=== PATIENT | female | born 1945 | race Caucasian/White ===

== ENCOUNTER 2021-02-12 09:28 | Inpatient (IN) ==
--- NOTE | 2021-02-01 12:05 | PAT Medication Instructions ---
Medication Instructions Date of Service February 01, 2021 Home Medications acetaminophen [Tylenol Arthritis] 650 - 1,300 mg PO Q12H PRN aspirin 81 mg PO QAM carvedilol 25 mg PO BID cholecalciferol (vitamin D3) [Vitamin D3] 25 mcg PO QAM hydralazine 10 mg PO TID hydrochlorothiazide 12.5 mg PO QAM losartan 50 mg PO BID montelukast 10 mg PO QPM nitroglycerin 0.4 mg SUBLINGUAL UD PRN rosuvastatin 5 mg PO QAM Continue as directed nitroglycerin 0.4 mg SUBLINGUAL UD PRN (if needed) ASK your prescriber and surgeon aspirin 81 mg PO QAM DO NOT take the morning of surgery cholecalciferol (vitamin D3) [Vitamin D3] 25 mcg PO QAM hydrochlorothiazide 12.5 mg PO QAM losartan 50 mg PO BID Take morning of surgery With a small sip of water, OTHERWISE NOTHING TO EAT OR DRINK AFTER MIDNIGHT: acetaminophen [Tylenol Arthritis] 650 - 1,300 mg PO Q12H PRN (okay to take up to 4 hours prior to surgery if needed) carvedilol 25 mg PO BID hydralazine 10 mg PO TID rosuvastatin 5 mg PO QAM Take evening before surgery acetaminophen [Tylenol Arthritis] 650 - 1,300 mg PO Q12H PRN (if needed) carvedilol 25 mg PO BID hydralazine 10 mg PO TID losartan 50 mg PO BID montelukast 10 mg PO QPM Other Notes If you have any questions please call us at [phone] or [phone] or [phone] or [phone]
--- NOTE | 2021-02-02 08:45 | Anesthesiology Consultation ---
Date of Service February 02, 2021 Assessment & Plan (1) Encounter for pre-operative examination: - COVID screening: Per assessment on 02/02: Travel screen negative, no known COVID-19 positive contacts or current COVID-19 related symptoms. Patient vaccinated. Surgeon arranging preop COVID testing. Awaiting results. - PCP office visit (12/08/20): "Doing well in general. Not having any complaints at this time.. No chest pain.. no dyspnea on exertion." Continued on same regimen. F/U 4 months. BP check visit done 12/31/20 with adjustments in BP meds. BP 148/88 at subsequent PAT visit 02/02. Chart Review Chart Review: Acceptable Risk for Surgery and Patient seen in Pre Admission Testing Teaching & Discussion Pre-Anesthesia Teaching/Discussion Notes: Instructed NPO after midnight before surgery,except medications with 15 cc of water. Medication instructions provided according to the PAT guidelines. History Surgery Operation Date: 02/12/21 08:50 Proposed Procedures p Right Total Shoulder Arthroplasty Reverse - Malik Zapata DO Height/Weight Height: 5 ft 4 in Weight: 115.8 kg Allergies Allergy/AdvReac Type Severity Reaction Status Date / Time Sulfa (Sulfonamide Allergy Unknown Unknown Verified 02/02/21 09:04 Antibiotics) remote reaction Cjgskel-Ppv-Lvv Reductase AdvReac Intermediate Muscle Pain Verified 01/26/21 07:33 Inhibitor Medications Home Medications Medication Instructions Recorded Confirmed Last Taken acetaminophen [Tylenol Arthritis] 650 - 1,300 mg PO Q12H PRN 01/26/21 01/26/21 Unknown aspirin 81 mg PO QAM 01/26/21 01/26/21 Unknown carvedilol 25 mg PO BID 01/26/21 01/26/21 Unknown cholecalciferol (vitamin D3) 25 mcg PO QAM 01/26/21 01/26/21 Unknown [Vitamin D3] hydralazine 10 mg PO TID 01/26/21 01/26/21 Unknown hydrochlorothiazide 12.5 mg PO QAM 01/26/21 01/26/21 Unknown losartan 50 mg PO BID 01/26/21 01/26/21 Unknown montelukast 10 mg PO QPM 01/26/21 01/26/21 Unknown nitroglycerin 0.4 mg SUBLINGUAL UD PRN 01/26/21 01/26/21 Unknown rosuvastatin 5 mg PO QAM 01/26/21 01/26/21 Unknown Past Medical History Medical History CAD (coronary artery disease) stent x1 (2008) Chronic kidney disease Degenerative disc disease Eczema Hyperlipidemia Hypertension Morbid obesity Osteoarthritis Pinched nerve LBP (LLE weakness) Seasonal allergies Exercise / Class Metabolic Activity III < 4 Walking/Shop/Light housework Past Family History Family History Brother No problems noted. Father Family history of diabetes mellitus Brother Family history of diabetes mellitus Other No family history of adverse response to anesthesia Past Surgical History Surgical History History of colonoscopy History of heart artery stent stent x1 (2008) History of surgery polyp and nodule resection from throat (benign) History of tooth extraction Past Anesthesia History No Hx of Anesthesia Complications and No Family Hx of Anesthesia Complications History of PONV No Hx of PONV and No Hx of Motion Sickness Social History Smoking Status: Never smoker Do You Dip or Chew Tobacco: No Hx Alcohol Use: No substance use type: does not use Review of Systems Rare nighttime wheezes r/t allergies (unchanged) Patient denies chest pain, shortness of breath, fever, chills, cough, palpitations. Physical Exam Vital Signs VITALS BP 148/88 P 71 TEMP 98.3 SP02 96%RA RESP 16 PHYSICAL Full cervical extension range of motion. Full TMJ range of motion. TMD 3.5 finger breaths Mallampati Score 3 (macroglossia) Dentition: full dentures upper/lower Lungs: clear throughout to auscultation Cardiac: regular rate and rhythm, no murmurs noted Spine: normal Carotid arteries: negative bruit Extremities: no edema Lab Results Anesthesia Preop Results Results Anesthesia Widget: WBC 6.64 K/uL (4.8-10.8) 02/02/21 Hgb 12.1 g/dL (12.0-16.0) 02/02/21 Hct 35.8 % (37-47) L 02/02/21 Plt 291 K/uL (130-400) 02/02/21 Na 136 mmol/L (136-145) 02/02/21 K 4.2 mmol/L (3.5-5.1) 02/02/21 Cl 104 mmol/L (98-107) 02/02/21 CO2 27 mmol/L (21-32) 02/02/21 BUN 21 mg/dl (7-18) H 02/02/21 Creat 0.89 mg/dl (0.6-1.2) 02/02/21 Glucose Level 93 mg/dl (70-99) 02/02/21 PT 10.3 Seconds (9.0-12.0) 02/02/21 PTT 26.1 Seconds (21.0-31.0) 02/02/21 INR 1.0 (0.9-1.1) 02/02/21 Blood Type A Positive 02/02/21 Antibody Screen NEGATIVE 02/02/21 Testing Electrocardiogram Date: 02/02/21 Normal sinus rhythm at 62 bpm. LAD. Chest X-Ray Date: 02/02/21 FINDINGS: The heart is mildly enlarged. There is aortic tortuosity/ectasia. There is no failure. There is no focal pulmonary consolidation. There are no pleural effusions.[ IMPRESSION: No active disease in the chest. Echocardiogram Date: 07/28/20 LVEF 65 to 69%. Moderately increased concentric LV wall thickness. Grade 1 diastolic dysfunction. No regional wall motion abnormalities. Mild to moderate MR. Mild pulmonary hypertension. Mild TR.
--- NOTE | 2021-02-11 07:08 | History & Physical Report ---
Date of Service February 11, 2021 Assessment & Plan (1) Rotator cuff arthropathy of right shoulder: We will proceed with a right reverse shoulder arthroplasty. Postoperatively she will be placed in a sling and kept overnight in the hospital for postoperative medical management. She plans to go to outpatient physical therapy at [facility] [place] History of Present Illness Chief Complaint: Osteoarthritis of the right shoulder. Primary Care Provider: Unknown Unknown Deepa is a pleasant 75-year-old female has been doing with chronic increasing right shoulder pain and weakness. She has been seeing a sports medicine primary care physician. She has had multiple injections with her shoulder and has done physical therapy. MRI shows severe osteoarthritis with some high-grade partial- thickness tearing throughout her rotator cuff. After failing conservative treatment, she has elected to proceed with a right reverse shoulder replacemen t.. Allergies Allergy/AdvReac Type Severity Reaction Status Date / Time Sulfa (Sulfonamide Allergy Unknown Unknown Verified 02/02/21 09:04 Antibiotics) remote reaction Lqvgtfc-Krv-Rkd Reductase AdvReac Intermediate Muscle Pain Verified 01/26/21 07:33 Inhibitor Home Medications Medication Instructions Recorded Confirmed Type acetaminophen [Tylenol Arthritis] 650 - 1,300 mg PO Q12H PRN 01/26/21 01/26/21 History aspirin 81 mg PO QAM 01/26/21 01/26/21 History carvedilol 25 mg PO BID 01/26/21 01/26/21 History cholecalciferol (vitamin D3) 25 mcg PO QAM 01/26/21 01/26/21 History [Vitamin D3] hydralazine 10 mg PO TID 01/26/21 01/26/21 History hydrochlorothiazide 12.5 mg PO QAM 01/26/21 01/26/21 History losartan 50 mg PO BID 01/26/21 01/26/21 History montelukast 10 mg PO QPM 01/26/21 01/26/21 History nitroglycerin 0.4 mg SUBLINGUAL UD PRN 01/26/21 01/26/21 History rosuvastatin 5 mg PO QAM 01/26/21 01/26/21 History Past Med/Surg History Medical History CAD (coronary artery disease) stent x1 (2008) Chronic kidney disease Degenerative disc disease Eczema Hyperlipidemia Hypertension Morbid obesity Osteoarthritis Pinched nerve LBP (LLE weakness) Seasonal allergies Surgical History History of colonoscopy History of heart artery stent stent x1 (2009) History of surgery polyp and nodule resection from throat (benign) History of tooth extraction Family History Brother No problems noted. Father Family history of diabetes mellitus Brother Family history of diabetes mellitus Other No family history of adverse response to anesthesia Social History Smoking Status: Never smoker Second Hand Exposure: Yes (IN THE PAST); Hx Alcohol Use: No Preferred Language: Hungarian Price Economist Required: No Beliefs That Will Affect Care: None Current Living Situation: Alone Feels Safe at Home: Yes Assistive Devices: Cane, Denture - Upper, Denture - Lower and Glasses Review of Systems All systems reviewed & are unremarkable except as noted in HPI & below. Physical Exam On physical examination of the right shoulder, she has about 90 degrees of forward elevation 60 degrees of abduction and 20 degrees of external rotation. She has 4-5 motor strength with full can testing. She has pain and crepitus throughout.. Constitutional WD/WN, vitals as above Eyes PERRL, conjunctivae normal, anicteric sclerae ENMT external ear and nose normal, oropharynx normal Neck trachea midline, no thyromegaly Respiratory normal respiratory effort Cardiovascular RRR, no murmur, no edema Gastrointestinal (Abdomen) normal bowel sounds, soft, nontender, no hepatosplenomegaly Psychiatric A+Ox3, euthymic affect Results & Data Results & Data Laboratory Results . Diagnostic Findings X-rays of the right shoulder show advanced osteoarthritis with joint space narrowing, osteophyte formation, and djiv-gz-vuhh articulation. MRI of the right shoulder shows advanced osteoarthritis with high-grade partial- thickness cuff tearing throughout the rotator cuff.. PG Care Time/CCT Total # of Minutes Spent Total Time Spent with Patient: Total time spent is greater than 50% in coordination of care (as documented) at patient's floor/unit and/or counseling patient: Coding Level of Care Code None Diagnoses Rotator cuff arthropathy of right shoulder M12.811
[~2021-02-12 09:28] MED LIST: ACETAMINOPHEN 500 MG TAB PO SCH; BUPIVACAINE 0.5 % 5 MG/1 ML PF 10ML VIAL ONE; FAMOTIDINE 20 MG TAB PO SCH; GABAPENTIN 300 MG CAP PO SCH; LR 15ML/HR IV SCH; LR 60ML/HR IV SCH; TRANEXAMIC ACID 1,000 MG **IV Intra-op IV SCH; TRANEXAMIC ACID 1,000 MG **IV Pre-op IV SCH; ceFAZolin 2000MG 2,000 MG/15 ML SYR IV SCH; dexAMETHasone 4 MG TAB PO SCH
--- NOTE | 2021-02-12 10:36 | History & Physical Bridge Note ---
Date of Service February 12, 2021 History & Physical Bridge Note I have examined the patient, reviewed the History & Physical and in the interval since the performance of the History & Physical I have noted the following changes of clinical significance: no changes noted
[2021-02-12] MEDS ORDERED: ROCURONIUM BROMIDE 10 MG/ML 5 ML VIAL IV ONE (10:57)
[2021-02-12] MEDS ORDERED: SUCCINYLCHOLINE 100MG/5ML SYR IV ONE (10:57)
[2021-02-12] MEDS ORDERED: ONDANSETRON INJ 2 MG/ML 2 ML VIAL ONE (10:57)
[2021-02-12] MEDS ORDERED: PROPOFOL IV EMULSION 10 MG/ML 20 ML VIAL IV ONE (10:57)
[2021-02-12] MEDS ORDERED: fentaNYL citrate 100 MCG/2 ML VIAL ONE (10:57)
[2021-02-12] MEDS ORDERED: MIDAZOLAM HCL 1 MG/ML 2ML VIAL ONE (10:57)
[2021-02-12] MEDS ORDERED: DEXAMETHASONE SOD INJ 4 MG/ML VIAL ONE (10:57)
[2021-02-12] MEDS ORDERED: ATROPINE SULFATE 0.1 MG/ML 10ML SYR IV PRN (11:20)
[2021-02-12] MEDS ORDERED: fentaNYL citrate 100 MCG/2 ML VIAL IV PRN (11:20)
[2021-02-12] MEDS ORDERED: ePHEDrine sulfate 50 MG/ML AMP IV PRN (11:20)
[2021-02-12] MEDS ORDERED: ONDANSETRON INJ 2 MG/ML 2 ML VIAL IV PRN ×2 (11:20→16:43)
[2021-02-12] MEDS ORDERED: ORTHO JOINT ANESTHETIC ONE (12:26)
[2021-02-12] MEDS ORDERED: ROPIVACAINE 0.5% HCL/PF 150 MG, BUPIVACAINE 0.75% MPF 20 ML, EPINEPHrine 30MG/30ML (OR ... INSTIL SCH (12:45)
[2021-02-12] MEDS ORDERED: ePHEDrine sulfate 50 MG/ML AMP ONE (13:05)
[2021-02-12] MEDS ORDERED: PHENYLEPHRINE 100MCG/ML 5ML SYR ONE (13:05)
--- NOTE | 2021-02-12 14:13 | Operative Report ---
PG Post Operative Report Pre & Post Diagnosis Operation Date: 02/12/21 11:35 Pre-Op Diagnosis: Right Shoulder Degenerative Joint Disease with tendinopathy long head of the biceps tendon Post-Op Diagnosis: Right Shoulder Degenerative Joint Disease with tendinopathy of the long head of the biceps tendon I identified the patient and participated in the time-out.: Yes Procedure Operation Date: 02/12/21 11:35 Actual Procedures p Right Reverse Total Shoulder Arthroplasty(Right) with open biceps tenodesis as a distinct and separate procedure (modifier 59)- Malik Zapata DO Surgeon Malik Zapata DO Machine Operator Assistant Malik Chun PAC Estimated Blood Loss 200 Findings Consistent with Post-Op Diagnosis Specimens Right humeral head Complications none Disposition Disposition: Recovery Room Indications Sangeeta is a pleasant 75-year-old female who is been there with chronic worsening right shoulder pain. X-rays have been diagnostic for advanced arthritis of the shoulder with high-grade partial-thickness cuff tearing. After failing conservative treatment, she elected proceed with a right reverse shoulder arthroplasty. Description of Procedure A CPT code modifier 59: The long head of the biceps tendon was enlarged and inflamed consistent with tendinopathy. A tenodesis was opted. This was a separate and distinct portion of the procedure. For these reasons, a CPT code modifier 59 will be added to this case. Implants used: I used a [employer]omet Comprehensive reverse total shoulder arthroplasty system with a size 10 press fit micro humeral stem, a 25 mm small augment humeral tray and a +3 humeral bearing, a standard baseplate with a 6.5 mm central screw and superior and inferior locking screws, and a size 36 mm eccentric glenosphere. Sangeeta arrived at [facility] for the above procedure. He was seen in the preoperative holding area and the operative extremity was identified and signed. He was given a preoperative antibiotic, TXA, and an interscalene nerve block. He was taken back to the operating room, laid on table in supine position, and put under general anesthesia. He was then put into the beachchair position. The shoulder was then prepped and draped in sterile fashion. A timeout was done and the patient and the operative extremity was properly identified. A deltopectoral approach was used. Dissection was taken down through the fascia and the deltoid was retracted laterally and the conjoined tendon was retracted medially. The anterior shoulder was exposed. The biceps groove was opened up and the biceps tendon was examined extensively. The biceps tendon demonstrated enlargement and inflammatory changes consistent with longstanding inflammation in the context of osteoarthritis and cuff arthropathy. The long head of the biceps tendon was then tenodesed to the upper border of the pectoralis major. This was a separate and distinct portion of the procedure. The subscapularis was then directly released off the lesser tuberosity with a peel technique. The inferior capsule was released and the humeral head was dislocated. A canal finding reamer was sent down the center of the humeral canal. Sequential reaming up to a size 10 reamer was done. Off that reamer, a proximal humeral resection guide was placed. The proximal humerus was resected at 135 of inclination and 25 of retroversion. Osteophytes were then removed and the glenoid was exposed. Time was spent doing a complete capsular and labral release. The glenoid guide was then placed in the inferior aspect of the glenoid. A 3.2 mm Steinmann pin was then placed into the glenoid vault at 10 of inclination. The glenoid baseplate was then reamed. The final size 25 mm small augment baseplate was then impacted in the place. A 6.5 mm central screw was then placed followed by superior and inferior locking screws. A 36 eccentric glenosphere was then impacted into place. Surrounding soft tissues were then injected with 100 cc an orthopedic pain control cocktail. The proximal humerus was then exposed. Sequential broaching of the humerus up to a size 10 broach was done. Off that broach a +3 offset humeral tray was trialed. The shoulder was then reduced, brought through a full range of motion, and felt to be stable. The shoulder was then dislocated and the broach was removed. The final size 10 micro press-fit humeral stem was then impacted into place. A standard humeral bearing was then snapped onto a +3 offset humeral tray. The humeral tray was then impacted onto the humeral stem. The shoulder was once again reduced, brou ght through a full range of motion, and felt to be stable. The subscapularis was then tenodesed back to the lesser tuberosity with transosseous FiberWire sutures and side to side sutures with the arm in 45 of external rotation. A dilute betadyne lavage was then done for 3 minutes. The joint was then irrigated with normal saline solution. Hemostasis was obtained. The interval was closed with 2-0 Vicryl suture. The skin was then closed with 2-0 Vicryl and jorge. A Silverlon dressing was placed and the arm was rested in a regular arm sling. He was then extubated and transferred to a hospital bed. He taken to the postanesthesia care unit in stable condition. He tolerated the procedure well. Malik Chun PA-C, was present for the entire procedure. He was critical for patient positioning, prepping, draping, retraction exposure, wound closure and application of sterile dressing. I attest to the content of the Intraoperative Record and any orders documented t herein. Any exceptions are noted below.
--- NOTE | 2021-02-12 14:58 | Anesthesiology Progress Note ---
Date of Service February 12, 2021 Anesthesia Post Procedure Vital Signs Vital Signs: Temp Pulse Pulse Resp BP Pulse Ox 02/12/21 14:55 75 16 133/70 97 02/12/21 14:45 84 16 136/77 98 02/12/21 14:38 36.1 C L 82 16 136/74 94 02/12/21 09:49 36.7 C 84 18 160/94 H 94 Transfer of Care Handoff Completed per policy Notes Mental Status: alert / awake / arousable and participated in evaluation Patient Amnestic to Procedure: Yes Nausea / Vomiting: adequately controlled Pain: adequately controlled Airway Patency, RR, SpO2: stable & adequate BP & HR: stable & adequate Hydration State: stable & adequate Anesthetic Complications: no major complications apparent and Pt Satisfied with anesthetic care
--- NOTE | 2021-02-12 15:05 | XRay Report ---
XR shoulder RT min 2V routine CLINICAL HISTORY: Post shoulder surgery COMPARISON: 01/06/2021 DISCUSSION: There are postsurgical changes of a reverse total right shoulder arthroplasty there is no dislocation. There is gas within the soft tissues consistent with recent surgery. There are overlyin g skin jorge. There is a suspected small right pleural effusion with right basilar atelectasis. IMPRESSION: 1. Postsurgical changes of a reverse total right shoulder arthroplasty. No evidence of dislocation. 2. Suspected small right pleural effusion with associated right basilar atelectasis ACT 112: Negative or not required by law. Electronically signed by: Charli Knight M.D. 02/12/2021 3:04 PM
[2021-02-12] MEDS ORDERED: NALOXONE HCL 0.4 MG/1 ML VIAL/CARP IV PRN (16:43)
[2021-02-12] MEDS ORDERED: MAGNESIUM HYDROXIDE SUSP 30 ML UDC PO PRN (16:43)
[2021-02-12] MEDS ORDERED: HYDROmorphone INJ 0.5 MG/0.5 ML SYR IV PRN (16:43)
[2021-02-12] MEDS ORDERED: oxyCODONE HCL IR 5 MG TAB (IMMEDIATE RELEASE) PO PRN (16:43)
[2021-02-12] MEDS ORDERED: SODIUM CHLORIDE 0.9% 1000ML 1,000 ML IV SCH (16:43)
[2021-02-12] MEDS ORDERED: METOCLOPRAMIDE HCL INJ 5 MG/ML 2 ML VIAL IV PRN (16:43)
[2021-02-12] MEDS ORDERED: NITROGLYCERIN SL 0.4 MG/TAB TAB SL PRN (16:43)
[2021-02-12] MEDS ORDERED: bisacodyL 10 MG SUPP PR PRN (16:43)
[2021-02-12] MEDS: KETOROLAC TROMETHAMINE 15 MG/ML VIAL IV SCH ×2 (17:30→23:25)
[2021-02-12] MEDS: DOCUSATE SODIUM 100 MG CAP PO SCH (20:18)
[2021-02-12] MEDS: LOSARTAN POTASSIUM 50 MG TAB PO SCH (20:18)
[2021-02-12] MEDS: ceFAZolin 2000MG 2,000 MG/15 ML SYR IV SCH (20:18)
[2021-02-12] MEDS: carvediloL 25 MG TAB PO SCH (20:19)
[2021-02-12] MEDS: hydrALAZINE 10 MG TAB PO SCH (20:19)
[2021-02-12] MEDS ORDERED: MONTELUKAST SODIUM 10 MG TABLET PO SCH (21:00)
[2021-02-12] MEDS ORDERED: SENNA 8.6 MG TAB PO SCH (21:00)
[2021-02-12] MEDS: ACETAMINOPHEN 500 MG TAB PO SCH (21:30)
[2021-02-13] MEDS: ACETAMINOPHEN 500 MG TAB PO SCH (05:06)
[2021-02-13] MEDS: KETOROLAC TROMETHAMINE 15 MG/ML VIAL IV SCH (05:07)
[2021-02-13] MEDS: ceFAZolin 2000MG 2,000 MG/15 ML SYR IV SCH (05:07)
--- NOTE | 2021-02-13 07:46 | Orthopedic Progress Note ---
Date of Service February 13, 2021 Assessment & Plan (1) Status post reverse total replacement of right shoulder: Overall she is doing very well. She is not having much pain in the right shoulder. She can be seen by physical therapy today for ambulation and range of motion exercises. She can be discharged home later today. She will follow-up with orthopedics in 2 weeks. Herson Qureshi was seen and examined at bedside this morning. Overall she is doing very well. She is not having any pain in the right shoulder. She was able to get some sleep last night. She has no complaints.. Review of Systems All systems reviewed & are unremarkable except as noted in HPI & below. Physical Exam On physical examination of the right shoulder, the dressing is clean and dry. She is wearing her sling as instructed. The nerve block is still in effect. Results & Data Results & Data Laboratory Results . Diagnostic Findings Show the prosthesis to be in anatomic alignment without any evidence of fracture, dislocation, or loosening. PG Care Time/CCT Total # of Minutes Spent Total Time Spent with Patient: Total time spent is greater than 50% in coordination of care (as documented) at patient's floor/unit and/or counseling patient: Coding Level of Care Code 79967 Post Operative Follow-Up Diagnoses Status post reverse total replacement of right shoulder Z96.611
--- NOTE | 2021-02-13 07:47 | Discharge Summary ---
Date of Service February 13, 2021 Admission HPI (Per Admitting) Deepa is a pleasant 75-year-old female has been doing with chronic increasing right shoulder pain and weakness. She has been seeing a sports medicine primary care physician. She has had multiple injections with her shoulder and has done physical therapy. MRI shows severe osteoarthritis with some high-grade partial- thickness tearing throughout her rotator cuff. After failing conservative treatment, she has elected to proceed with a right reverse shoulder replacement.. Admission Exam (Per Admitting) On physical examination of the right shoulder, she has about 90 degrees of forward elevation 60 degrees of abduction and 20 degrees of external rotation. She has 4-5 motor strength with full can testing. She has pain and crepitus throughout.. Principal Diagnosis Same as "Discharge Diagnosis" noted below under Discharge Instructions. Discharge Exam On physical examination of the right shoulder, the dressing is clean and dry. She is wearing her sling as instructed. The nerve block is still in effect. Discharge Data Procedures Performed Operation Date: 02/12/21 11:35 Actual Procedures p Right Reverse Total Shoulder Arthroplasty(Right) - Malik Zapata DO Ordered Studies 02/12/21 05:00 US - OR guided needle placemen Routine Hospital Course (1) Status post reverse total replacement of right shoulder: On February 12, 2021 Kiera arrived at [facility] and underwent a right reverse shoulder replacement without complication. She had a general anesthetic and a right interscalene nerve block. Postoperatively she was placed in a sling and transferred to the general orthopedic floors. Her hospital course was uneventful. On postop day #1 her vital signs are stable and her pain was well controlled. She was able to participate well with physical therapy doing ambulation and range of motion exercises. She was then discharged home. She will follow-up with orthopedics in 2 weeks. PG Care Time/CCT Total # of Minutes Spent Total Time Spent with Patient: Total time spent is greater than 50% in coordination of care (as documented) at patient's floor/unit and/or counseling patient: Discharge Plan Discharge Items Patient Disposition: Home - Home Health Services Reason For Visit: Right Shoulder Degenerative Joint Disease Discharge Diagnosis: Right reverse shoulder replacement Activity: As commented below Non-emergency contact: Surgeon Call non-emergency contact if: your wound has increased redness and your wound has increased drainage Follow-up/Referrals: Harlan Winkler PA-C [Primary Care Provider] - Diet: Regular Addtl Attending Provider Instructions: Activity and Therapy Recommendations: * If you are using [facility] then therapy will be provided at your home until they feel you have accomplished all of your goals. * If you are using [facility] then Physical Therapy will be provided until they feel you are ready to start Outpatient Physical Therapy. * If you are not using home therapy then Outpatient Physical Therapy should start about 3-5 days from your day of surgery. Therapy will last about 8-12 weeks * Wear your sling for 3 weeks, unless otherwise instructed. You may remove your sling to shower and to dress, but otherwise, you should be in your sling at all times, including while sleeping * The shoulder replacement is very stable and you can use your hand while in the sling * You were shown a series of exercises in the hospital. Do these exercises daily including the exercises you were shown in physical therapy. Medications: * Narcotic You will likely be sent home from the hospital with a prescription for the narcotic pain medication that worked best throughout your stay. * Other medications may be prescribed for specific circumstances. If you have any questions, please call the office at . * Resume previous home medications unless otherwise instructed Dressing Care: Leave the Silverlon dressing in place for 7 days. After 7 days you may remove the dressing. If the incision is not draining then you may leave the jorge open to air. If there is a little bit of drainage or if the jorge are getting stuck on your clothing then cover the incision with a dry dressing. The jorge will be removed at your 2 week follow-up appointment. Showering: You may shower with the Silverlon dressing in place. Do not let the shower spray hit the dressing directly. Pat the Silverlon dressing dry. If the dressing becomes wet underneath, then simply remove the dressing. Keep the incision dry until you are 7 days out from the day of surgery. After 7 days you may remove the Silverlon dressing and shower with the jorge exposed. Let soapy water run over the jorge and pat them dry. Do not scrub or soak the incision. Things To Watch For: * Drainage from the incision site that occurs more than one week after your surgery. * Increased redness at the incision site. * Fever above 102 degrees Fahrenheit. * Unusual chest pain or shortness of breath. * Call [facility] at with any of the above problems Follow-Up Visit: Follow-up with Dr. Zapata's PA (Malik Chun) 2-3 weeks after your day of surgery. He will remove your jorge and answer any questions. If you have any additional questions or concerns, Dr Zapata is usually in the office at the same time and will be available An appointment was probably scheduled when you signed-up for surgery in the office. If you have any questions call More detailed instructions as well as Frequently Asked Questions were provided in a folder by our office when you signed-up for surgery. Please review these instructions when you get home. If you have any further questions or concerns, please feel free to call the office at [phone] Pending Studies at Discharge: No Stand-Alone Forms: My [facility], Smoking Cessation Medications and DC Order Prescriptions: New oxycodone 5 mg Tablet 5 mg PO Q4H PRN (Reason: pain) Qty: 30 RF: 0 Continued losartan 50 mg Tablet 50 mg PO BID RF: 0 hydralazine 10 mg Tablet 10 mg PO TID RF: 0 carvedilol 25 mg Tablet 25 mg PO BID RF: 0 acetaminophen [Tylenol Arthritis] 650 mg Tablet Extended Release 650 - 1,300 mg PO Q12H PRN (Reason: Pain) RF: 0 montelukast 10 mg Tablet 10 mg PO QPM RF: 0 aspirin 81 mg Tablet 81 mg PO QAM RF: 0 cholecalciferol (vitamin D3) [Vitamin D3] 25 mcg (1,000 unit) Capsule 25 mcg PO QAM RF: 0 rosuvastatin 5 mg Tablet 5 mg PO QAM RF: 0 hydrochlorothiazide 12.5 mg Tablet 12.5 mg PO QAM RF: 0 nitroglycerin 0.4 mg Tablet, Sublingual 0.4 mg sublingual UD PRN (Reason: Chest Pain) RF: 0 Discharge Orders: Discharge Order (Routine); Ordered 02/13/21 Ordered By: Malik Zapata Admission Data Admit Date/Time: 02/12/21 14:36 Attending Provider: Malik Zapata Admit Provider: Malik Zapata Primary Care Provider: Harlan Winkler
[2021-02-13] MEDS: carvediloL 25 MG TAB PO SCH (07:53)
[2021-02-13] MEDS: DOCUSATE SODIUM 100 MG CAP PO SCH (07:54)
[2021-02-13] MEDS: LOSARTAN POTASSIUM 50 MG TAB PO SCH (07:54)
[2021-02-13] MEDS: hydrALAZINE 10 MG TAB PO SCH ×2 (07:58→08:04)
[2021-02-13] MEDS ORDERED: dexAMETHasone 4 MG TAB PO SCH (08:00)
[2021-02-13] MEDS ORDERED: hydroCHLOROthiazide 25 MG TAB PO SCH (09:00)
[2021-02-13] MEDS ORDERED: ASPIRIN 81 MG ECTAB PO SCH (09:00)
[2021-02-13] MEDS ORDERED: ROSUVASTATIN CALCIUM 5 MG TAB PO SCH (09:00)
[2021-02-13] MEDS ORDERED: MULTIVITAMIN TAB PO SCH (09:00)
== END 2021-02-13 12:40 | disposition home health service (06) | DRG 483 ==
LOC: ASU 09:28 → 3E 14:36

== ENCOUNTER 2024-07-26 07:11 | Observation (INO) ==
--- NOTE | 2024-06-19 14:26 | PAT Medication Instructions ---
Medication Instructions Date of Service June 19, 2024 Home Medications acetaminophen 650 mg tablet,extended release 650 - 1,300 mg PO Q12H PRN Pain aspirin 81 mg tablet 81 mg PO QAM losartan 50 mg tablet 50 mg PO QAM nitroglycerin 0.4 mg sublingual tablet 0.4 mg sublingual UD PRN Chest Pain apixaban 5 mg tablet (Eliquis) 5 mg PO BID metoprolol succinate 100 mg tablet,extended release 24 hr 100 mg PO QAM famotidine 20 mg tablet 20 mg PO QAM meclizine 25 mg tablet 25 mg PO TID PRN prn Continue as directed nitroglycerin 0.4 mg sublingual tablet 0.4 mg sublingual UD PRN Chest Pain (if needed) ASK your prescriber and surgeon aspirin 81 mg tablet 81 mg PO QAM apixaban 5 mg tablet (Eliquis) 5 mg PO BID DO NOT take the morning of surgery losartan 50 mg tablet 50 mg PO QAM Take morning of surgery With a small sip of water, OTHERWISE NOTHING TO EAT OR DRINK AFTER MIDNIGHT: acetaminophen 650 mg tablet,extended release 650 - 1,300 mg PO Q12H PRN Pain (if needed) metoprolol succinate 100 mg tablet,extended release 24 hr 100 mg PO QAM famotidine 20 mg tablet 20 mg PO QAM meclizine 25 mg tablet 25 mg PO TID PRN prn (if needed) Take evening before surgery acetaminophen 650 mg tablet,extended release 650 - 1,300 mg PO Q12H PRN Pain (if needed) meclizine 25 mg tablet 25 mg PO TID PRN prn (if needed) Other Notes If you have any questions please call us at [phone] or [phone] or [phone] or [phone]
--- NOTE | 2024-06-25 10:28 | Anesthesiology Consultation ---
Date of Service June 25, 2024 Assessment & Plan (1) Encounter for pre-operative examination: - Infectious disease screening: Per assessment on 06/25- No known recent infectious disease contacts or current infectious disease symptoms. - Outpatient joint assessment: Pt currently scheduled for inpatient pathway. If surgeon requests review for outpatient joint pathway, patient is not recommended candidate for outpatient joint program from anesthesia standpoint based on available information. - ASA/Eliquis instructions per surgeon/prescriber - S/P Right reverse TSA (02/12/21): Grade 2 view, MAC#3, ETT 7.5 + regional at [facility] - Cardiology visit (04/18/24): "Paroxysmal atrial fibrillation.. s/p discharge from hospital 5 days ago for new onset afib.. patient is not in afib today.. discussed with patient rationale for use of metoprolol and the rationale for eliquis over aspirin in the prevention of stroke.. We will not make any changes to her medications today. We will give her a little more time to adjust to the changes that were made at the time of her hospitalization. Patient has been given my business card to contact me with any concerns or change in condition.. patient has no interest in being evaluated for sleep apnea, reasoning she is claustrophobic.. Hematuria.. Culture, urine.. urinanalysis.. continue the same medications for now and continue to monitor blood pressures at home.. Coronary artery disease involving [place] coronary artery of [place] heart without angina pectoris.. Dyslipidemia, goal LDL below 70.. Presence of coronary angioplasty implant and graft- Stable.. Continue aspirin and refer to [facility] for lipid management given history of statin intolerance. See if we can get her on a pcsk9 inhibitor." 6 month F/U recommended. Subsequently treated for UTI > "resolved" per patient. Chart Review Chart Review: Acceptable Risk for Surgery and Patient seen in Pre Admission Testing Teaching & Discussion Pre-Anesthesia Teaching/Discussion Notes: Instructed NPO after midnight before surgery,except medications with 15 cc of water. Medication instructions provided according to the PAT guidelines. History Surgery Operation Date: 07/26/24 12:00 Proposed Procedures p Left Reverse Total Shoulder Arthroplasty - Malik Zapata, Height/Weight Height: 5 ft 5 in Weight: 109.3 kg Allergies Allergy/AdvReac Type Severity Reaction Status Date / Time Sulfa (Sulfonamide Allergy Unknown Unknown Verified 06/19/24 13:18 Antibiotics) remote reaction Aevupvz-OCQ-UrQ Reductase AdvReac Intermediate Muscle Pain Verified 06/19/24 13:18 Inhibitor [Obzjiet-Nvg-Akg Reductase Inhibitor] Medications Home Medications Medication Instructions Recorded Confirmed Last Taken acetaminophen 650 mg 650 - 1,300 mg PO Q12H PRN Pain 01/26/21 06/19/24 02/11/21 08:00 tablet,extended release aspirin 81 mg tablet 81 mg PO QAM 01/26/21 06/19/24 02/12/21 07:00 losartan 50 mg tablet 50 mg PO QAM 01/26/21 06/19/24 02/12/21 07:00 nitroglycerin 0.4 mg sublingual 0.4 mg sublingual UD PRN Chest Pain 01/26/21 06/19/24 Unknown tablet apixaban 5 mg tablet (Eliquis) 5 mg PO BID 04/24/24 06/19/24 Unknown metoprolol succinate 100 mg 100 mg PO QAM 04/24/24 06/19/24 Unknown tablet,extended release 24 hr famotidine 20 mg tablet 20 mg PO QAM 06/19/24 06/19/24 Unknown meclizine 25 mg tablet 25 mg PO TID PRN prn 06/19/24 06/19/24 Unknown Past Medical History Medical History Atrial fibrillation CAD (coronary artery disease) stent x1 (2008) Follows with [facility] cardio Chronic kidney disease Follows with [facility] nephrology Degenerative disc disease Hyperlipidemia Hypertension Morbid obesity Osteoarthritis Sciatic leg pain Right Seasonal allergies Exercise / Class Metabolic Activity III < 4 Walking/Shop/Light housework (uses cane ) Past Family History Family History Brother No problems noted. Father Family history of diabetes mellitus Brother Family history of diabetes mellitus Other No family history of adverse response to anesthesia Past Surgical History Surgical History History of cataract extraction R/L History of cholecystectomy History of colonoscopy History of esophagogastroduodenoscopy (EGD) History of heart artery stent stent x1 (2008) History of surgery polyp and nodule resection from throat (benign) History of tooth extraction Status post reverse total replacement of right shoulder Right reverse TSA (02/12/21): Grade 2 view, MAC#3, ETT 7.5 + regional at [facility] Past Anesthesia History No Hx of Anesthesia Complications and No Family Hx of Anesthesia Complications History of PONV No Hx of PONV and No Hx of Motion Sickness Social History Smoking Status: Never smoker Do You Dip or Chew Tobacco: No Hx Alcohol Use: No Hx Substance Use: No substance use type: does not use Review of Systems Patient denies chest pain, shortness of breath, fever, chills, cough, wheezing, palpitations. Physical Exam Vital Signs BP 146/69 P 56 TEMP 98.1 SP02 96%RA RESP 18 Physical Full cervical extension range of motion. Full TMJ range of motion. TMD > 3.5 finger breaths Mallampati Score III Dentition: full dentures upper/lower Lungs: clear throughout to auscultation Cardiac: regular rate and rhythm, distant heart sounds Spine: normal Carotid arteries: negative bruit Extremities: no LE edema Lab Results Anesthesia Preop Results Results Anesthesia Widget: WBC 11.34 K/ul (4.8-10.8) H 06/25/24 Hgb 12.6 g/dl (12.0-16.0) 06/25/24 Hct 36.1 % (37.0-47.0) L 06/25/24 Plt 290 K/uL (130-400) 06/25/24 Na 139 mmol/L (136-145) 06/25/24 K 3.6 mmol/L (3.5-5.1) 06/25/24 Cl 106 mmol/L (98-107) 06/25/24 CO2 28 mmol/L (21-32) 06/25/24 BUN 24 mg/dl (6-23) H 06/25/24 Creat 0.88 mg/dl (0.6-1.2) 06/25/24 Glucose Level 80 mg/dl (70-99(Fasting)) 06/25/24 PT 10.9 Seconds (9.0-12.0) 06/25/24 PTT 28 Seconds (21-31) 06/25/24 INR 1.0 (0.9-1.1) 06/25/24 Blood Type A Positive 06/25/24 Antibody Screen NEGATIVE 06/25/24 Testing Electrocardiogram Date: 04/18/24 SB at 57bpm. "Otherwise normal ECG" Chest X-Ray Date: 04/11/24 Findings: + NAD Echocardiogram Date: 04/11/24 LVEF 55 to 59%. No LV segmental wall motion abnormalities. Mildly increased concentric LV wall thickness. Mild MR/TR.
[~2024-07-26 07:11] MED LIST changes: -ACETAMINOPHEN 500 MG TAB PO SCH; -FAMOTIDINE 20 MG TAB PO SCH; -GABAPENTIN 300 MG CAP PO SCH; -LR 15ML/HR IV SCH; -LR 60ML/HR IV SCH; +SODIUM CHLORIDE 0.9% PF INJ 10 ML VIAL ONE; -TRANEXAMIC ACID 1,000 MG **IV Intra-op IV SCH; -TRANEXAMIC ACID 1,000 MG **IV Pre-op IV SCH; -ceFAZolin 2000MG 2,000 MG/15 ML SYR IV SCH; -dexAMETHasone 4 MG TAB PO SCH
[2024-07-26] MEDS ORDERED: SUGAMMADEX SODIUM 200 MG/2 ML VIAL IV ONE (07:30)
[2024-07-26] MEDS ORDERED: ROCURONIUM BROMIDE 10 MG/ML 5 ML VIAL IV ONE (07:30)
[2024-07-26] MEDS ORDERED: LIDOCAINE 2% 2 ML VIAL/AMP(20MG/ML) INFIL ONE (07:30)
[2024-07-26] MEDS ORDERED: MIDAZOLAM HCL 1 MG/ML 2ML VIAL ONE (07:30)
[2024-07-26] MEDS ORDERED: PROPOFOL IV EMULSION 10 MG/ML 20 ML VIAL IV ONE (07:30)
[2024-07-26] MEDS ORDERED: fentaNYL citrate PF 100 MCG/2 ML VIAL ONE (07:30)
--- NOTE | 2024-07-26 07:58 | History & Physical Bridge Note ---
Date of Service July 26, 2024 History & Physical Bridge Note I have examined the patient, reviewed the History & Physical and in the interval since the performance of the History & Physical I have noted the following changes of clinical significance: no changes noted
[2024-07-26] MEDS: FAMOTIDINE 20 MG TAB PO SCH (08:21)
[2024-07-26] MEDS: GABAPENTIN 300 MG CAP PO SCH (08:21)
[2024-07-26] MEDS: ACETAMINOPHEN 500 MG TAB PO SCH ×2 (08:21→22:05)
[2024-07-26] MEDS: dexAMETHasone**PF** 10 MG/ML VIAL IV SCH (08:22)
[2024-07-26] MEDS: LR 60ML/HR IV SCH (08:22)
[2024-07-26] MEDS ORDERED: ONDANSETRON INJ 2 MG/ML 2 ML VIAL IV PRN ×2 (08:45→10:39)
[2024-07-26] MEDS ORDERED: ATROPINE SULFATE 0.1 MG/ML 10ML SYR IV PRN (08:45)
[2024-07-26] MEDS ORDERED: KETOROLAC 30 MG/ML VIAL IV PRN (08:45)
[2024-07-26] MEDS ORDERED: PROMETHAZINE HCL 6.25 MG in SODIUM CHLORIDE 0.9% 50 ML IV PRN (08:45)
[2024-07-26] MEDS ORDERED: LABETALOL HCL IV 5 MG/ML 20ML IV PRN (08:45)
[2024-07-26] MEDS ORDERED: fentaNYL citrate PF 100 MCG/2 ML VIAL IV PRN (08:45)
[2024-07-26] MEDS: TRANEXAMIC ACID 1,000 MG **IV Pre-op IV SCH (08:47)
[2024-07-26] MEDS: LR 15ML/HR IV SCH (08:47)
[2024-07-26] MEDS: ceFAZolin 2000MG 2,000 MG/15 ML SYR IV SCH ×2 (09:20→21:23)
[2024-07-26] MEDS ORDERED: DEXAMETHASONE SOD INJ 4 MG/ML VIAL ONE (09:39)
[2024-07-26] MEDS ORDERED: ONDANSETRON INJ 2 MG/ML 2 ML VIAL ONE (09:39)
[2024-07-26] MEDS ORDERED: GLYCOPYRROLATE 0.2 MG/ML VIAL ONE (09:42)
[2024-07-26] MEDS: ROPIV 0.5% 246mg, Ketorolac 30mg, EPINEPHrine 0.5mg in NSS INFIL SCH (09:44)
[2024-07-26] MEDS: ORTHO JOINT ANESTHETIC ONE (09:45)
[2024-07-26] MEDS: TRANEXAMIC ACID 1,000 MG **IV Intra-op IV SCH (10:17)
--- NOTE | 2024-07-26 10:21 | Operative Report ---
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 A tenodesis was opted. This was a separate and distinct portion of the procedure. For these reasons, a CPT code modifier 59 will be added to this case. Implants used: I used a [employer] Comprehensive reverse total shoulder arthroplasty system with a size 10 press fit micro humeral stem, a +6 offset humeral tray and a +3 retentive humeral bearing, a 25 mm small augment baseplate with a 6.5 mm central screw and superior and inferior locking screws, and a size 36 mm eccentric glenosphere. Sangeeta arrived at [facility] for the above procedure. She was seen in the preoperative holding area and the operative extremity was identified and signed. She was given a preoperative antibiotic, TXA, and an interscalene nerve block. She was taken back to the operating room, laid on table in supine position, and put under general anesthesia. She was then put into the beachchair position. The shoulder was then prepped and draped in sterile fashion. A timeout was done and the patient and the operative extremity was properly identified. A deltopectoral approach was used. Dissection was taken down through the fascia and the deltoid was retracted laterally and the conjoined tendon was retracted medially. The anterior shoulder was exposed. The biceps groove was opened up and the biceps tendon was examined extensively. The biceps tendon demonstrated enlargement and inflammatory changes consistent with longstanding inflammation in the context of osteoarthritis and cuff arthropathy. The long head of the biceps tendon was then tenodesed to the upper border of the pectoralis major. This was a separate and distinct portion of the procedure. The subscapularis was then directly released off the lesser tuberosity with a peel technique. The inferior capsule was released and the humeral head was dislocated. A canal finding reamer was sent down the center of the humeral canal. Sequential reaming up to a size 10 reamer was done. Off that reamer, a proximal humeral resection guide was placed. The proximal humerus was resected at 135 of inclination and 25 of retroversion. Osteophytes were then removed and the glenoid was exposed. Time was spent doing a complete capsular and labral release. The glenoid guide was then placed in the inferior aspect of the glenoid. A 3.2 mm Steinmann pin was then placed into the glenoid vault at 10 of inclination. The glenoid baseplate was then reamed. The final size 25 mm small augment baseplate was then impacted in the place. A 6.5 mm central screw was then placed followed by superior and inferior locking screws. A 36 mm eccentric glenosphere was then impacted into place. Surrounding soft tissues were then injected with 100 cc an orthopedic pain control cocktail. The proximal humerus was then exposed. Sequential broaching of the humerus up to a size 10 broach was done. Off that broach a +6 offset +3 retentive humeral tray was trialed. The shoulder was then reduced, brought through a full range of motion, and felt to be stable. The shoulder was then dislocated and the broach was removed. The final size 10 micro press-fit humeral stem was then impacted into place. A +3 retentive humeral bearing was then snapped onto a +6 offset humeral tray. The humeral tray was then impacted onto the humeral stem. The shoulder was once again reduced, brought through a full range of motion, and felt to be stable. The subscapularis with poor quality and unable to be repaired. A dilute betadyne lavage was then done for 3 minutes. The joint was then irrigated with normal saline solution. Hemostasis was obtained. The interval was closed with 2-0 Vicryl suture. The skin was then closed with 2-0 Vicryl and jorge. A Silverlon dressing was placed and the arm was rested in a regular arm sling. She was then extubated and transferred to a hospital bed. She taken to the postanesthesia care unit in stable condition. She tolerated the procedure well. Tameka Martinez PA-C, was present for the entire procedure. He was critical for patient positioning, prepping, draping, retraction exposure, wound closure and application of sterile dressing. I attest to the content of the Intraoperative Record and any orders documented therein. Any exceptions are noted below.
[2024-07-26] MEDS ORDERED: diphenhydrAMINE Capsule 25 MG CAP PO PRN (10:39)
[2024-07-26] MEDS ORDERED: HYDROmorphone INJ 0.5 MG/0.5 ML SYR IV PRN (10:39)
[2024-07-26] MEDS ORDERED: bisacodyL 10 MG SUPP PR PRN (10:39)
[2024-07-26] MEDS ORDERED: METOCLOPRAMIDE HCL INJ 5 MG/ML 2 ML VIAL IV PRN (10:39)
[2024-07-26] MEDS ORDERED: NALOXONE HCL 0.4 MG/1 ML VIAL/CARP IV PRN (10:39)
[2024-07-26] MEDS ORDERED: oxyCODONE HCL IR 5 MG TAB (IMMEDIATE RELEASE) PO PRN (10:39)
[2024-07-26] MEDS ORDERED: MAGNESIUM HYDROXIDE SUSP 30 ML UDC PO PRN (10:39)
[2024-07-26] MEDS ORDERED: NITROGLYCERIN SL 0.4 MG/TAB TAB SL PRN (10:41)
[2024-07-26] MEDS ORDERED: MECLIZINE HCL 25 MG TAB PO PRN (10:41)
--- NOTE | 2024-07-26 11:24 | XRay Report ---
XR shoulder LT min 2V routine CLINICAL HISTORY: Post shoulder surgery TECHNIQUE: 3 views of the left shoulder were obtained. Comparison: Comparison is made to shoulder radiograph 04/24/2024 FINDINGS: Patient is status post shoulder arthroplasty with expected postsurgical changes including soft tissue swelling and subcutaneous emphysema. No periarticular lucency or hardware fracture is seen. IMPRESSION: Expected postoperative appearance status post placement of shoulder arthroplasty. ACT 112: Negative or not required by law. Electronically signed by: Joshua Rolle M.D. 07/26/2024 11:23 AM
--- NOTE | 2024-07-26 11:34 | Anesthesiology Progress Note ---
Date of Service July 26, 2024 Anesthesia Post Procedure Vital Signs Vital Signs: Temp Pulse Pulse Resp BP Pulse Ox O2 Del Method 07/26/24 11:20 36.4 C L 76 19 158/76 H 99 Nasal Cannula 07/26/24 11:10 82 19 152/74 H 99 Nasal Cannula 07/26/24 11:00 86 19 151/77 H 98 Nasal Cannula 07/26/24 10:50 36.5 C 89 17 152/76 H 94 Nasal Cannula 07/26/24 08:01 36.7 C 72 20 181/95 H 98 Room Air O2 Flow Rate 07/26/24 11:20 2 07/26/24 11:10 2 07/26/24 11:00 2 07/26/24 10:50 2 07/26/24 08:01 Transfer of Care Handoff Completed per policy Notes Mental Status: alert / awake / arousable Patient Amnestic to Procedure: Yes Nausea / Vomiting: adequately controlled Pain: adequately controlled Airway Patency, RR, SpO2: stable & adequate BP & HR: stable & adequate Hydration State: stable & adequate Anesthetic Complications: no major complications apparent
[2024-07-26] MEDS: KETOROLAC TROMETHAMINE 15 MG/ML VIAL IV SCH (13:49)
[2024-07-26] MEDS: APIXABAN 5 MG TABLET PO SCH (20:54)
[2024-07-26] MEDS: SENNA 8.6 MG TAB PO SCH (20:54)
[2024-07-26] MEDS: DOCUSATE SODIUM 100 MG CAP PO SCH (20:54)
[2024-07-27] MEDS ORDERED: Nursing to Pharmacy Communication SCH (00:45)
[2024-07-27 03:07] VITALS: RESP 16
[2024-07-27] MEDS: ceFAZolin 2000MG 2,000 MG/15 ML SYR IV SCH (06:25)
--- NOTE | 2024-07-27 07:01 | Orthopedic Progress Note ---
Date of Service July 27, 2024 Assessment & Plan (1) Status post reverse total replacement of left shoulder: Overall she is doing very well. She is not having much pain in the left shoulder. She will be seen by physical therapy today for ambulation and range of motion exercises. She can be discharged to home later today. She will follow-up with orthopedics in 2 weeks. Herson Rutherford was seen and examined at bedside this morning. Overall she is doing very well. She is not having much pain in the left shoulder. She has been up and ambulating. She has no complaints.. Review of Systems All systems reviewed & are unremarkable except as noted in HPI & below. Physical Exam On physical exam of the left shoulder, the dressing is clean and dry. She is wearing her sling as instructed. She is active motion of her hand and her wrist.. Results & Data Results & Data Laboratory Results . Diagnostic Findings Postoperative x-rays of the left shoulder show the prosthesis to be in anatomic alignment without any evidence of fracture, dislocation, or loosening.. PG Care Time/CCT Total # of Minutes Spent Total Time Spent with Patient: Total time spent is greater than 50% in coordination of care (as documented) at patient's floor/unit and/or counseling patient: Coding Level of Care Code 07849 Post Operative Follow-Up Diagnoses Status post reverse total replacement of left shoulder Z96.612
--- NOTE | 2024-07-27 07:02 | Discharge Summary ---
Date of Service July 27, 2024 Principal Diagnosis Same as "Discharge Diagnosis" noted below under Discharge Instructions. Discharge Exam On physical exam of the left shoulder, the dressing is clean and dry. She is wearing her sling as instructed. She is active motion of her hand and her wrist.. Discharge Data Procedures Performed Operation Date: 07/26/24 09:00 Actual Procedures p Left Reverse Total Shoulder Arthroplasty(Left) - Malki Zapata DO Ordered Studies 07/26/24 05:00 US - OR guided needle placemen Routine Hospital Course (1) Status post reverse total replacement of left shoulder: On July 26, 2024 Sangeeta arrived at [facility] and underwent a left reverse shoulder replacement without complication. She had a general anesthetic and a left interscalene nerve block. Postoperatively she was placed in a sling and transferred to the general orthopedic floors. Her hospital course was uneventful. On postop day #1, her vital signs were stable and her pain was well-controlled. She was able to participate well with physical therapy doing ambulation and range of motion exercises. She was then discharged to home. She will follow-up with orthopedics in 2 weeks. PG Care Time/CCT Total # of Minutes Spent Total Time Spent with Patient: Total time spent is greater than 50% in coordination of care (as documented) at patient's floor/unit and/or counseling patient: Discharge Plan Discharge Items Patient Disposition: Home - Self-Care Reason For Visit: Left Shoulder Arthritis Discharge Diagnosis: Left reverse shoulder replacement Activity: Per Instructions section Non-emergency contact: Surgeon Call non-emergency contact if: your wound has increased redness and your wound has increased drainage Follow-up/Referrals: Harlan Winkler PA-C [Outside Practitioners] - Diet: Regular Addtl Attending Provider Instructions: Activity and Therapy Recommendations: * If you are using [facility] then therapy will be provided at your home until they feel you have accomplished all of your goals. * If you are using [facility] then Physical Therapy will be provided until they feel you are ready to start Outpatient Physical Therapy. * If you are not using home therapy then Outpatient Physical Therapy should start about 3-5 days from your day of surgery. Therapy will last about 8-12 weeks * Wear your sling for 3 weeks, unless otherwise instructed. You may remove your sling to shower and to dress, but otherwise, you should be in your sling at all times, including while sleeping * The shoulder replacement is very stable and you can use your hand while in the sling * You were shown a series of exercises in the hospital. Do these exercises daily including the exercises you were shown in physical therapy. Medications: * Narcotic You will likely be sent home from the hospital with a prescription for the narcotic pain medication that worked best throughout your stay. * Cefadroxil -take the antibiotic twice a day for 10 days to help prevent infection. * Other medications may be prescribed for specific circumstances. If you have any questions, please call the office at . * Resume previous home medications unless otherwise instructed Dressing Care: Leave the Silverlon dressing in place for 7 days. After 7 days you may remove the dressing. If the incision is not draining then you may leave the jorge open to air. If there is a little bit of drainage or if the jorge are getting stuck on your clothing then cover the incision with a dry dressing. The jorge will be removed at your 2 week follow-up appointment. Showering: You may shower with the Silverlon dressing in place. Do not let the shower spray hit the dressing directly. Pat the [place] dressing dry. If the dressing becomes wet underneath, then simply remove the dressing. Keep the incision dry until you are 7 days out from the day of surgery. After 7 days you may remove the [place] dressing and shower with the jorge exposed. Let soapy water run over the jorge and pat them dry. Do not scrub or soak the incision. Diet: You may resume your previous diet. Things To Watch For: * Drainage from the incision site that occurs more than one week after your surgery. * Increased redness at the incision site. * Fever above 102 degrees Fahrenheit. * Unusual chest pain or shortness of breath. * Call [facility] at with any of the above problems Follow-Up Visit: Follow-up with Dr. Zapata's office 2-3 weeks after your day of surgery. We will remove your jorge and answer any questions. If you have any additional questions or concerns, Dr Zapata is usually in the office at the same time and will be available An appointment was probably scheduled when you signed-up for surgery in the office. If you have any questions call More detailed instructions as well as Frequently Asked Questions were provided in a folder by our office when you signed-up for surgery. Please review these instructions when you get home. If you have any further questions or concerns, please feel free to call the office at [phone] Pending Studies at Discharge: No Stand-Alone Forms: My [facility], Smoking Cessation Medications and DC Order Prescriptions: New oxycodone 5 mg Tablet 5 mg PO Q4H PRN (Reason: pain) Qty: 30 0RF cefadroxil 500 mg capsule 500 mg PO BID 10 Days Qty: 20 0RF Continued Eliquis 5 mg tablet 5 mg PO BID metoprolol succinate 100 mg tablet extended release 24 hr 100 mg PO QAM losartan 50 mg Tablet 50 mg PO QAM acetaminophen 650 mg Tablet Extended Release 650 - 1,300 mg PO Q12H PRN (Reason: Pain) aspirin 81 mg Tablet 81 mg PO QAM nitroglycerin 0.4 mg Tablet, Sublingual 0.4 mg sublingual UD PRN (Reason: Chest Pain) famotidine 20 mg tablet 20 mg PO QAM meclizine 25 mg tablet 25 mg PO TID PRN (Reason: prn) Discharge Orders: Discharge Order (Routine); Ordered 07/27/24 Ordered By: Malik Zapata Admission Data Admit Date/Time: 07/26/24 10:39 Attending Provider: Malik Zapata Admit Provider: Malik Zapata Primary Care Provider: Madai Martin
[2024-07-27 07:31] VITALS: BP 152/83; PULSE 83; TEMP 97.7; O2SAT 94
[2024-07-27] MEDS: dexAMETHasone 4 MG TAB PO SCH (08:00)
[2024-07-27] MEDS: LOSARTAN POTASSIUM 50 MG TAB PO SCH (08:00)
[2024-07-27] MEDS: ASPIRIN 81 MG ECTAB PO SCH (08:00)
[2024-07-27] MEDS: MULTIVITAMIN TAB PO SCH (08:00)
[2024-07-27] MEDS: METOPROLOL SUCC 50MG EXT REL TAB PO SCH (08:01)
[2024-07-27] MEDS ORDERED: FAMOTIDINE 20 MG TAB PO SCH (09:00)
--- OUTSIDE RECORDS SUMMARY | 2024-07-27 15:14 | External Medical Summary | Summary of Care ---
Author Name Unknown Organization [facility] Address [address] [facility] [place] [address] Phone [phone] Care Team Providers Care Supervisor Finishing Room Name Role Phone Madai Martin MD Primary Care Provi donita Reason for Referral * Precert (Within 10 days (routine)) - Authorized Specialty Diagnoses / Procedures Referred By Contac t Referred To Contact Pain Medicine Diagnoses Lumbar radicular pain Spinal stenosis of lumbar region with neurogenic claudication Procedures LUMBAR / SACRAL EPIDURAL, SINGLE LEVEL Lacy Arellano PA-C [address] [place] [address] Phone: tel: fax: Referral ID Status Reason Start Date Expiration Date V isits Requested Visits Authorized [id number] Authorized 10/23/2024 [id number] Reason for Visit * Reason Onset Date Comments Nurse Telephone Follow Up 07/24/2024 Encounter Details Date Type Department Care Team (Late st Contact Info) Description 07/24/2024 11:00 AM EST Scheduled Telephone Interventional Pain Center, [facility] [address] [place] [address] Nurse Royce Phone Call Interventional Pain [facility] [address] [place] [address] Lumbar radicular pain*; Spinal stenosis of lumbar region with neurogenic claudication Allergies Active Allergy Reactions Criticality Noted Date Comments Amlodipine Edema Other Medium 05/01/2020 Increased swelling in feet and legs, up to and including knees. States 2 different shoe sizes as it increase this much. Trailed and failed twice Atorvastatin Calcium Muscle pain 02/10/2011 Pravastatin Muscle pain 02/18/2013 Sulfa Antibiotics 02/15/2001 documented as of this encounter (statuses as of 07/25/2024) Medications aspirin enteric coated 81 MG TBEC Take 1 Tablet by mouth in the morning. Active Acetaminophen ER 650 MG Oral Tablet Extended Release Take 2 Tablets by mouth every 8 hours as needed for Pain. Active Meclizine HCl 25 MG Oral Tablet (Antivert)Indicati ons:Vertigo TAKE 1 TABLET THREE TIMES A DAY NEEDED FOR DIZZINESS 270 Tablet 1 01/18/20 23 Active Azelastine HCl 0.1 % Nasal Solution (Astelin)Indicatio ns:Otalgia of both ears Administer 1 [place] into nostril in the morning and 1 [place] before bedtime. 90 mL 1 06/23/20 23 Active Famotidine 20 MG Oral Tablet (Pepcid) Take 1 Tablet by mouth in the morning and 1 Tablet before bedtime. 180 Tablet 3 10/24/19 24 Active Additional Information Patient taking differently:20 mg OralDaily(AM), Reported on 04/18/2024 Nitroglycerin 0.4 MG Sublingual Tablet Sublingual (Nitrostat)Indicat ions:ASCVD (arteriosclerotic cardiovascular disease),S/P angioplasty with stent dissolve one under the tongue every 5 minutes as needed for chest pain not to exceed 3 doses in 15 minutes 25 Tablet 3 04/05/20 24 Active Apixaban 5 MG Oral Tablet (Eliquis) Take 1 Tablet by mouth in the morning and 1 Tablet before bedtime. 180 Tablet 3 04/18/20 24 Active Metoprolol Succinate ER 100 MG Oral Tablet Extended Release 24 Hour (toPROL XL) Take 1 Tablet by mouth in the morning. 90 Tablet 3 04/18/20 24 Active Estradiol 0.1 MG/GM Vaginal Cream (Estrace) Apply a pea sized amount to urethral opening nightly for 2 weeks then 2 times per week 42.5 g 2 09/18/20 24 Active Losartan Potassium 50 MG Oral Tablet (Cozaar)Indication s:HTN, goal below 140/90 Take 1 Tablet by mouth in the morning. 90 Tablet 3 05/05/20 Active Repatha SureClick 140 MG/ML Subcutaneous Solution Auto-injector (evolocumab)Indica tions:Dyslipidemia , goal LDL below 70 Inject 140 mg (1 pen) under the skin every 14 days. Remove from refrigerator 30 minutes prior to injection. 2 mL 11 9:47 AM EST 05/06/20 Active Additional Information Patient not taking.Reported on 06/17/2024 Ciprofloxacin HCl 500 MG Oral Tablet (Cipro) Take 1 Tablet by mouth in the morning and 1 Tablet before bedtime. 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 03/06/2023 Chronic left hip pain 11/21/2022 Statin intolerance 04/06/2022 Stage 3a chronic kidney disease 08/25/2021 Body mass index (BMI) of 40.0 to 44.9 in adult 0 12/22/2020 Overview: Per Obesity protocol Mixed conductive and sensori neural hearing loss of both ears 05/04/2019 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 05/04/2019 S/P primary angioplasty with coronary stent 04/15 Gait abnormality 05/04/2019 Vitamin D deficiency 04/01/2019 Dyslipidemia, goal LDL below 130 06/26/2017 Acquired hypothyroidism 11/25/2016 S/P angioplasty with stent 04/15/2009 HTN, goal below 140/90 02/03/2003 documented as of this encounter (statuses as of 07/25/2024) Resolved Problems Problem Noted Date Diagnosed Date Resolved Date Morbid obesity due to excess calories 12/08/2020 03/19/2021 Atherosclerotic heart diseas e of [place] coronary artery with other forms of angina pectoris 12/08/2020 03/19/2021 UTI (urinary tract infection) 05/05/2019 12/11/2019 Benign hypertension with chr onic kidney disease, stage III 12/24/2018 08/25/2021 CKD (chronic kidney disease) stage 3, GFR 30-59 ml/min 11/30/2015 04/26/2019 Overview: Per CKD protocol #1 Obesity, Class II, BMI 35-39 .9, isolated (see actual BMI) 01/25/2010 03/19/2021 Overview (01/25/2010): Per Obesity Protocol, #19 Acute coronary syndrome 03/10/2009 09/0 09/2008 ADVANCE DIRECTIVE INFORMATION 12/27/2006 12/11/2019 Overview (12/27/2006): No, Advance Directive brochure offered , patient declined. Menopause 02/03/2003 06/26/2017 documented as of this encounter (statuses as of 07/25/2024) Immunizations Name Administration Dates Next Due COVID-19 mRNA, LNP-s, No Pre serve, 2-Dose Series (Pfizer) 09/14/2020,09/11/2020,08/14/2020 PPD 12/15/2004 Pneumococcal Polysaccharide PPV23 (Pneumovax) 02/05/2010(Deferred: Patient Refused) Seasonal Influenza Vac., MDV , IM, 0.5 mL (Fluzone) 07/13/2010(Deferred: Patient Refused),10/01/2008(Deferred: Patient Refused) TDAP, Age 7 and older, IM (Adacel) 02/05/2010(De ferred: Patient Refused) documented as of this encounter Social History Tobacco Use Types Packs/Day Years Used Date Smoking Tobacco: Never Smokeless Tobacco: Never Alcohol Use Standard Drinks/Week Comments Never 0 (1 standard drink = 0.6 oz pur e alcohol) AUDIT-C Answer Date Recorded Frequency of Alcohol Consumption Never 05/04/2019 Average Number of Drinks Not on file 019 Frequency of Binge Drinking Not on file 04/15 PHQ-2 Answer Date Recorded PHQ Adult Total Score 0 10/10/2023 Hunger Vital Sign Answer Date Recorded Worried About Running Out of Food in the Last Ye ar Never true 05/10/2019 Ran Out of Food in the Last Year Never true 05/10/2019 Personal Safety Answer Date Recorded Do you feel unsafe or have concerns for your saf ety? No 04/11/2024 Do you have concerns for you r family's safety? (Household - for ages 0-17 years) Not on file 04/11/2024 Utilities Answer Date Recorded Do you have trouble paying y our heating, water, or electric bill? No 04/11/2024 Is your family able to pay t he heat, water, or electric bill? (Household - for ages 0-17 years) Not on file 04/11/2024 Does your family have access to good internet? (Household - for ages 0-17 years) Not on file 04/11/2024 Transportation Needs Answer Date Record ed Do you have trouble getting a ride to medical visits or work? (Adult - for ages 18 years and over) Not on file 04/11/2024 Does your family have a hard time getting a ride to doctors visits? (Household - for ages 0-17 years) Not on file 04/11/2024 Has lack of transportation k ept you from medical appointments, meetings, work, or from getting things needed for daily living? Check all that apply. No 04/11/2024 Do you (or your family) have trouble finding or paying for a ride (transportation)? (Household - for ages 0-17 years) Not on file 04/11/2024 Housing Stability Answer Date Recorded Do you currently live in a s helter or have no steady place to sleep at night? (Adult - for ages 18 years and over) Not on file 04/11/2024 Do you think you are at risk of becoming homeless? (Adult - for ages 18 years and over) Not on file 04/11/2024 Does your family worry about paying for your home or becoming homeless? (Household - for ages 0-17 years) Not on file 0 04/11/2024 Are you homeless or worried that you might be in the future? No 04/11/2024 Are you (or your family) maddie eless or worried that you might be in the future? (Household - for ages 0-17 years) Not on file Food Insecurity Answer Date Recorded Do you need food for this week? No 04/11/2024 Are you able to get enough f ood for your family? (Household - for ages 0-17 years) Not on file 04/11/2024 Does your family need food t his week? (Household - for ages 0-17 years) Not on file 04/11/2024 Do you always have enough fo od for your family? (Household - for ages 0-17 years) Not on file 04/11/2024 Comments No Sex and Gender Information Value Date Recorded Sex Assigned at Female 01/03/2020 8:40 AM EDT Legal Sex Female 5:57 AM EST Gender Identity Female 01/03/2020 8:40 AM EDT Sexual Orientation Straight 01/03/2020 8: 40 AM EDT documented as of this encounter Functional Status * Are you deaf or do you have serious difficulty hearing? Answer Date of Assessment Author No 04/11/2024 6:28 AM EDT Jovon Felix RN * Are you blind or do you have serious difficulty seeing, even when wearing glasses? Answer Date of Assessment Author Yes 04/11/2024 6:28 AM EDT Jovon Felix RN * Do you have serious difficulty walking or climbing stairs? (5 years old or older) Answer Date of Assessment Author No 04/11/2024 6:28 AM LAURAT Jovon Felix RN * Do you have difficulty dressing or bathing? (5 years old or older) Answer Date of Assessment Author No 04/11/2024 6:28 AM EDT Jovon Felix RN * Because of a physical, mental, or emotional condition, do you have difficulty doing errands alone such as visiting a doctors office or shopping? (15 years old or older) Answer Date of Assessment Author Yes 04/11/2024 6:28 AM EDT Jovon Felix RN documented as of this encounter Mental Status * Because of a physical, mental, or emotional condition, do you have serious difficulty concentrating, remembering, or making decisions? (5 years old or older) Answer Entry Date Author No 04/11/2024 6:28 AM EDJovon Marina RN documented in this encounter Miscellaneous Notes * Addendum Note - Lacy Arellano PA-C - 07/25/2024 11:19 AM ESTAddended by: LACY ARELLANO on: 07/25/2024 11:19 AM Modules accepted: Orders * Telephone Encounter - Tameka Raya LPN - 07/24/2024 4:24 PM EST Patient is willing to try TFESI. Please order. Also aware it will be early spring until she can getit done. * Telephone Encounter - Lacy Arellano PA-C - 07/24/2024 2:31 PM EST She had 100% pain relief for one week following interlaminar KRISTEN and pain is now only affecting R LE, would consider R L4 TF KRISTEN. She is on eliquis and will need to space injection and surgery accordingly due to steroid exposure. * Telephone Encounter - Tameka Raya LPN - 07/24/2024 12:33 PM EST Pain returned the 100% improvement prior to that, now back to baseline Difficulty walking/working Right groin and buttock and right leg to ankle-front of leg Has rotator cuff surgery on Monday with * Telephone Encounter - Tameka Raya LPN - 07/24/2024 11:33 AM EST L5/S1 interlaminar epidural steroid injection on the right side on 06/17/24 Left message for patient to return call documented in this encounter Plan of Treatment Upcoming Encounters Date Type Department Care Team ([facility] Contact Info) Description 08/01/2024 10:00 AM EST Office Visit [address] [place] [phone] Pharmacist1, [address] [id number] 08/01/2024 10:30 AM EST Pharmacy Pharmacy [place] [phone] Pharmacist1, [address] [address] 08/27/2024 7:00 AM EST Laboratory Laboratory Patient Service [address] [phone] [address] 08/30/2024 8:30 AM EST Telemedicine Cardiology [facility] [address] [address] [place] [phone], Pharmacist Cardiology [address] [address] 09/04/2024 9:00 AM EST Office Visit Urology, [facility] [address] [place] [phone] Tere Le PA-C [address] [place] [address] 10/03/2024 7:00 AM EST Laboratory Laboratory Patient Service [place], [address] [phone] [facility]ly [facility] [address] [address] 10/07/2024 8:00 AM EST Office Visit [address] [phone] Madai Martin MD [address] [place] [phone] 10/28/2024 10:30 AM EDT Office Visit [facility] [place] [place] [phone] Yeni Durant CRNP [address] [place] [address] Scheduled Orders Name Type Priority Associated Diagnoses Orde r Schedule LUMBAR / SACRAL EPIDURAL, SINGLE LEVEL Procedures Routine Lumbar radicular pain Spinal stenosis of lumbar region with neurogenic claudication Expected: 10/23/2024 (Approximate), Expires: 08/25/2025 Health Maintenance Due Date Last Done Comments Pneumococcal Vaccine: 65+ Years (1 of 1 - PCV) 2011 COVID-19 Vaccine ( - season) 2024 09/14/2020, 09/11/2020, 08/14/2020 Influenza Vaccine (FLU shot) (#1) 2024 Adult Wellness Visit 07/13/2024 07/13/2023, 05/07/20 21 Albumin/Creatinine Ratio 09/20/2024 024, 09/30/2022, 06/14/2022, Additional history exists Depression Screening 10/10/2024 10/10/2023 GFR 10/11/2024 04/12/2024, 03/15, 04/11/2024, Additional history exists CKD PHOS USE SMARTSET 52458 04/11/202503/15, 04/10/2023, 02/18/2022, Additional history exists CKD HGB USE SMARTSET 15700 04/12/202504/12, 04/11/2024, 04/11/2024, Additional history exists Colonoscopy 02/23/2026 02/23/2023, 05/10/2011 DXA Scan 06/27/2029 06/27/2022 DTap/Tdap Vaccines (2 - Td or Tdap) 04/03/2030 04/03/2020 (Declined) HPV (Gardasil) Vaccine Aged Out No lo nger eligible based on patient's age to complete this topic Hepatitis B Vaccine Aged Out No longe r eligible based on patient's age to complete this topic MENINGOCOCCAL (MENACTRA/MENVEO) Aged Out No longer eligible based on patient's age to complete this topic Zoster Vaccines Discontinued documented as of this encounter Medical Devices Not on filedocumented as of this encounter Visit Diagnoses Diagnosis Lumbar radicular pain- Primary Thoracic or lumbosacral neuritis or radiculitis, unspecified Spinal stenosis of lumbar region with neurogenic claudication Spinal stenosis, lumbar region, with neurogenic claudication documented in this encounter Advance Directives * Full Code (Latest Code Status on File) Date Activated Date Inactivated Comments 04/11/2024 5:57 AM 04/12/2024 3:41 PM This order r eflects the patients wishes and were consensually agreed upon. Question Answer Comments Discussion of Advance Directives occurred with: Patient Does the patient have a Living Will? No Does the patient have Health Care Power of Attor nelson? No * Full Code Date Activated Date Inactivated Comments 03/07/2023 6:15 AM 03/07/2023 3:22 PM This order r eflects the patients wishes and were consensually agreed upon. Question Answer Comments Discussion of Advance Directives occurred with: Patient * No Code Date Activated Date Inactivated Comments 05/04/2019 1:26 PM 05/06/2019 5:48 PM This order r eflects the patients wishes and were consensually agreed upon. Question Answer Comments Discussion of Advance Directives occurred with: Patient Does the patient have a Living Will? No Does the patient have Health Care Power of Attor nelson? No * Full Code Date Activated Date Inactivated Comments 03/10/2009 1:31 PM 03/11/2009 7:26 PM This order r eflects the patients wishes and were consensually agreed upon. Question Answer Comments Discussion of Advance Directives occurred with: Not Discussed Does the patient have a Living Will? No Does the patient have Health Care Power of Attor nelson? No * Full Code Date Activated Date Inactivated Comments 03/10/2009 12:34 PM 03/10/2009 12:40 PM This order reflects the patients wishes and were consensually agreed upon. Question Answer Comments Discussion of Advance Directives occurred with: Patient Care Teams Supervisor Finishing Room Relationship Specialty Start Date End Date Madai Martin MD [address] [place] [phone] PCP - General Family Medicine 05/23/24 documented as of this encounter
--- OUTSIDE RECORDS SUMMARY | 2024-07-27 15:14 | External Medical Summary | Summary of Care ---
Author Name Unknown Organization [facility] Address [address] [facility] [place] [address] Phone [phone] Care Team Providers Care Proof Machine Operator Name Role Phone Madai Martin MD Primary Care Provi donita Reason for Visit * Reason Onset Date Comments Nurse Telephone Follow Up 07/24/2024 Encounter Details Date Type Department Care Team (Late st Contact Info) Description 07/24/2024 11:00 AM EST Scheduled Telephone Interventional Pain Center, [facility] [address] [place] [address] [facility] Nurse Phone Call Interventional Pain [facility] [address] [place] [address] Allergies Active Allergy Reactions Criticality Noted Date Comments Amlodipine Edema Other Medium 05/01/2020 Increased swelling in feet and legs, up to and including knees. States 2 different shoe sizes as it increase this much. Trailed and failed twice Atorvastatin Calcium Muscle pain 02/10/2011 Pravastatin Muscle pain 02/18/2013 Sulfa Antibiotics 02/15/2001 documented as of this encounter (statuses as of 07/24/2024) Medications aspirin enteric coated 81 MG TBEC [...] (Astelin)Indicatio ns:Otalgia of both ears Administer 1 [place] into nostril in the morning and 1 [place] before bedtime. 90 mL 1 06/23/20 23 [...] 2 times per week 42.5 g 2 05/01/20 24 Active Losartan Potassium 50 MG Oral Tablet (Cozaar)Indication s:HTN, goal below 140/90 Take 1 Tablet by mouth in the morning. 90 Tablet 3 05/05/20 24 Active Repatha SureClick 140 MG/ML Subcutaneous Solution [...] 1 Tablet before bedtime. 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 05/04/2019 S/P primary angioplasty with coronary stent 04/15 Gait abnormality 05/04/2019 Vitamin D deficiency 04/01/2019 Dyslipidemia, goal LDL below 130 06/26/2017 Acquired hypothyroidism 11/25/2016 S/P angioplasty with stent 04/15/2009 HTN, goal below 140/90 02/03/2003 documented as of this encounter (statuses as of 07/24/2024) Resolved Problems Problem Noted Date Diagnosed Date Resolved Date Morbid obesity due to excess calories 12/08/2020 03/19/2021 Atherosclerotic heart diseas e of [place] coronary artery with other forms of angina [...] Obesity Protocol, #19 Acute coronary syndrome 03/10/2009 090 09/2008 ADVANCE DIRECTIVE INFORMATION 12/27/2006 12/11/2019 Overview (12/27/2006): No, Advance Directive brochure offered , patient declined. Menopause 02/03/2003 06/26/2017 documented as of this encounter (statuses as of 07/24/2024) Immunizations Name Administration Dates Next Due COVID-19 [...] of Assessment Author No 04/11/2024 6:28 AM Jovon Zaman RN * Are you blind or do you have serious difficulty seeing, even when wearing glasses? Answer Date of Assessment Author Yes 04/11/2024 6:28 AM Jovon Zaman RN * Do you have serious difficulty walking or climbing stairs? (5 years old or older) Answer Date of Assessment Author No 04/11/2024 6:28 AM Jovon Zaman RN * Do you have difficulty dressing or bathing? (5 years old or older) Answer Date of Assessment Author No 04/11/2024 6:28 AM Jovon Zaman RN * Because of a physical, mental, or emotional condition, do you have difficulty doing errands alone such as visiting a doctors office or shopping? (15 years old or older) Answer Date of Assessment Author Yes 04/11/2024 6:28 AM Jovon Zaman RN documented as of this encounter Mental Status * Because of a physical, mental, or emotional condition, do you have serious difficulty concentrating, remembering, or making decisions? (5 years old or older) Answer Entry Date Author No 04/11/2024 6:28 AM Jovon Zaman RN documented in this encounter Miscellaneous Notes * Telephone Encounter - Tameka Raya LPN - 07/24/2024 4:24 PM EST Patient is willing to try TFESI. Please order. Also aware it will be early spring until she can getit done. * Telephone Encounter - Ruthie Arellano PA-C - 07/24/2024 2:31 PM EST [...] Upcoming Encounters Date Type Department Care Team ([facility] Contact Info) Description 08/01/2024 10:00 AM EST Office Visit Pharmacy [address] [phone] Pharmacist1, [facility] [address] [address] 08/01/2024 10:30 AM EST Pharmacy Pharmacy [address] [phone] Pharmacist1, [address] [address] 08/27/2024 7:00 AM EST Laboratory Laboratory [facility] Service Center, [address] [phone] [facility] [address] [address] 08/30/2024 8:30 AM EST Telemedicine Cardiology [facility] [place] [address] [place] [address] [facility], Pharmacist Cardiology [facility] [address] [place] [address] 09/04/2024 9:00 AM EST Office Visit Urology, [place] [address] [place] [phone] Tere Le PA-C [address] [place] [address] 10/03/2024 7:00 AM EST Laboratory [facility] Center[address] [phone] [address] 10/07/2024 8:00 AM EST Office Visit [address] [phone] Madai Martin MD [address] [place] [phone] 10/28/2024 10:30 AM EDT Office Visit [address] [place] [address] Yeni Durant CRNP [address] [place], [place] [phone] Health Maintenance Due Date Last Done Comments Pneumococcal Vaccine: 65+ Years (1 of 1 - PCV) 2011 COVID-19 Vaccine ( season) 2024 09/14/2020, 09/11/2020, 08/14/2020 Influenza Vaccine (FLU shot) (#1) 2024 Adult Wellness Visit 07/13/2024 07/13/2023, 05/07/20 21 Albumin/Creatinine Ratio 09/20/2024 024, 09/30/2022, 06/14/2022, Additional history exists Depression Screening 10/10/2024 10/10/2023 GFR 10/11/2024 04/12/2024, 03/15, 04/11/2024, Additional history exists CKD PHOS USE SMARTSET 53269 04/11/202503/15, 04/10/2023, 02/18/2022, Additional history exists CKD HGB USE SMARTSET 65383 04/12/202504/12, 04/11/2024, 04/11/2024, Additional history exists Colonoscopy [...] Not on filedocumented as of this encounter Advance Directives * Full Code [...] Advance Directives occurred with: Patient Care Teams Proof Machine Operator Relationship Specialty Start Date End Date Madai Martin MD [address] [place] [phone] PCP - General Family Medicine 05/23/24 documented as of this encounter
--- OUTSIDE RECORDS SUMMARY | 2024-07-27 15:14 | External Medical Summary | Summary of Care ---
Author Name Unknown Organization [facility] Address [address] [facility] [place] [address] Phone [phone] Care Team Providers Care Jewel Bearing Maker Name Role Phone Madai Martin MD Primary Care Provi donita Reason for Visit * Reason Onset Date Comments Nurse Telephone Follow Up 07/24/2024 Encounter Details Date Type Department Care Team (Late st Contact Info) Description 07/24/2024 11:00 AM EST Scheduled Telephone Interventional Pain Center, [facility] [address] [place] [address] [facility] Nurse Phone Call Interventional Pain [facility] [address] [place] [phone] Arrived Allergies Active Allergy Reactions Criticality Noted Date [...] (Astelin)Indicatio ns:Otalgia of both ears Administer 1 [place] into nostril in the morning and 1 [place] before bedtime. 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 05/04/2019 S/P [...] 12/08/2020 03/19/2021 Atherosclerotic heart diseas e of [place] coronary artery with other forms of angina [...] No Pre serve, 2-Dose Series (Pfizer) 09/14/2020,09/11/2020,08/14/2020 Pneumococcal Polysaccharide PPV23 (Pneumovax) 02/05/2010(Deferred: Patient Refused) Seasonal Influenza Vac., MDV , IM, 0.5 mL (Fluzone) 07/13/2010(Deferred: Patient Refused),10/01/2008(Deferred: Patient Refused) TDAP, Age 7 and older, IM (Adacel) 02/05/2010(De estefanyd: Patient Refused) documented as of this encounter [...] Assessment Author No 04/11/2024 6:28 AM Jovon Zaamn RN * Do you have difficulty dressing [...] Upcoming Encounters Date Type Department Care Team (Late st Contact Info) Description 08/01/2024 10:00 AM EST Office Visit Pharmacy [address] [phone] Pharmacist1, [address] [address] 08/01/2024 10:30 AM EST Pharmacy Pharmacy [address] [phone] Pharmacist1, [address] [address] 08/27/2024 7:00 AM EST Laboratory Laboratory Patient Service [place], [address] [phone] [place], [facility] [address] [place] [address] 08/30/2024 8:30 AM EST Telemedicine Cardiology [facility] [place] [address] [place] [address] [place] [address], Pharmacist Cardiology [facility] [address] [place] [address] 09/04/2024 9:00 AM EST Office Visit Urology, [facility] [address] [place] [address] Tere Le PA-C [address] [place] [address] 10/03/2024 7:00 AM EST Laboratory Laboratory Patient Service Center, [address] [phone] [place], [facility] [address] [place] [address] 10/07/2024 8:00 AM EST Office Visit [address] [place] [address] Madai Martin MD [address] [place] [phone] 10/28/2024 10:30 AM EDT Office Visit Cardiology [facility] [address] [facility] [address] [place] [phone] Yeni Durant CRNP [address] [place] [address] Health Maintenance Due Date Last Done Comments Pneumococcal Vaccine: 65+ Years (1 of 1 - PCV) 2011 COVID-19 Vaccine (4 - season) 2024 09/14/2020, 09/11/2020, 08/14/2020 Influenza Vaccine (FLU shot) (#1) 2024 Adult Wellness Visit 07/13/2024 07/13/2023, 05/07/20 21 Albumin/Creatinine Ratio 09/20/2024 024, 09/30/2022, 06/14/2022, Additional history exists Depression Screening 10/10/2024 10/10/2023 GFR 10/11/2024 04/12/2024, 03/15, 04/11/2024, Additional history exists CKD PHOS USE SMARTSET 08632 04/11/202503/15, 04/10/2023, 02/18/2022, Additional history exists CKD HGB USE SMARTSET 95738 04/12/202504/12, 04/11/2024, 04/11/2024, Additional history exists Colonoscopy [...] 5:57 AM 04/12/2024 3:41 PM This order reflects the patients wishes [...] Advance Directives occurred with: Patient Care Teams Jewel Bearing Maker Relationship Specialty Start Date End Date Madai Martin MD [address] [place] [phone] PCP - General Family Medicine 05/23/24 documented as of this encounter
--- OUTSIDE RECORDS SUMMARY | 2024-07-27 15:14 | External Medical Summary | Summary of Care ---
Author Name Unknown Organization [facility] Address [address] [facility] [place] [address] Phone [phone] Care Team Providers Care Supervisor Pipeline Maintenance Name Role Phone Madai Martin MD Primary Care Provi donita Reason for Visit * Reason Onset Date Comments Nurse Telephone Follow Up 07/24/2024 Encounter Details Date Type Department Care Team (Late st Contact Info) Description 07/24/2024 11:00 AM EST Scheduled Telephone Interventional Pain Center, [facility] [address] [place] [address] [facility] Nurse Phone Call Interventional Pain [facility] [address] [place] [phone] Allergies Active Allergy Reactions Criticality Noted Date [...] (Astelin)Indicatio ns:Otalgia of both ears Administer 1 [place] into nostril in the morning and 1 [place] before bedtime. 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 05/04/2019 S/P [...] 12/08/2020 03/19/2021 Atherosclerotic heart diseas e of [place] coronary artery with other forms of angina [...] encounter Miscellaneous Notes * Telephone Encounter - Ruthie Arellano PA-C [...] 08/01/2024 10:00 AM EST Office Visit Pharmacy [address] [phone] Pharmacist1, [address] [address] 08/01/2024 10:30 AM EST Pharmacy Pharmacy [address] [phone] Pharmacist1, [address] [address] 08/27/2024 7:00 AM EST Laboratory [facility] [phone] [facility] [address] [place] [address] 08/30/2024 8:30 AM EST Telemedicine Cardiology [facility], [place] [address] [place] [address] [place] [address], Pharmacist Cardiology [place] [address] [place] [address] 09/04/2024 9:00 AM EST Office Visit Urology, [place] [facility] [address] [place] [phone] Tere Le PA-C [address] [place] [address] 10/03/2024 7:00 AM EST Laboratory Laboratory Patient Service Center, [place] [phone] [place], [facility] [address] [place] [address] 10/07/2024 8:00 AM EST Office Visit [facility] [address] [place] [phone] Madai Martin MD [address] [place] [phone] 10/28/2024 10:30 AM EDT Office Visit Cardiology [address] [place] [phone] Yeni Durant CRNP [address] [place] [address] Health Maintenance Due Date Last Done Comments [...] Additional history exists CKD PHOS USE SMARTSET 97411 04/11/202503/15, 04/10/2023, 02/18/2022, Additional history exists CKD HGB USE SMARTSET 49544 04/12/202504/124, 04/11/2024, 04/11/2024, Additional history exists Colonoscopy 02/23/2026 [...] Directives occurred with: Patient Care Teams Supervisor Pipeline Maintenance Relationship Specialty Start Date End Date Madai Martin MD [address] [place] [phone] PCP - General Family Medicine 05/23/24 documented as of this encounter
== END 2024-07-27 11:30 | disposition home or self-care (01) ==
LOC: ASU 07:11 → PACUINP 07:11 → 3E 12:30